=== PATIENT | female | born 1960 | race Caucasian/White ===

== ENCOUNTER 2016-06-22 20:31 | Emergency (ER) | payer MEDICARE, MEDICAID ==
[~2016-06-22] VITALS: Ht 157.5 cm; Wt 90.9 kg
[2016-06-22 21:36] VITALS: BP 145/96
[2016-06-22] MEDS ORDERED: HYDROmorphone 2 MG/ML (DILAUDID) 1 ML SYRINGE IM ONE (21:45)
[2016-06-22] MEDS ORDERED: KETOROLAC 60 MG/2 ML (TORADOL) VIAL IM ONE (21:45)
--- NOTE | 2016-06-22 22:40 | NUR ---
Jacky Rendon RN now assumes care of patient.
== END 2016-06-22 22:54 | disposition home or self-care (01) ==
LOC: ED 20:33
DX: S39.012A Strain of muscle, fascia and tendon of lower back, initial encounter (principal); W01.0XXA Fall on same level from slipping, tripping and stumbling without subsequent striking against object, initial encounter; G89.29 Other chronic pain
CPT/HCPCS: 96372; 99282; J1170; J1885

== ENCOUNTER 2016-07-21 15:03 | Emergency (ER) | payer MEDICARE, MEDICAID ==
[~2016-07-21] VITALS: Ht 157.5 cm; Wt 91.0 kg
--- NOTE | 2016-07-21 15:14 | NUR ---
PT REQUESTS "SOMETHING TO DRINK" & "TAKE THIS BP CUFF OFF, ITS TOO TIGHT". PT INFORMED THE CUFF IS DOWN AT THIS TIME & WILL BE CYCLING BUT IF PT TRIES NOT TO MOVE WHEN IT IS PUMPED UP, IT WILL COME DOWN FASTER. CL
--- NOTE | 2016-07-21 15:30 | NUR ---
WHEN PT ASKED WHO FILLED HER [facility] ON 06/29/16, PT STATES "DR KATHLEEN GENAO" & WHEN ASKED ABOUT HER COMMENT THAT SHE DOESN'T HAVE A PCP, PT STATES "HE WAS MY DR BUT I DROPPED HIM". CL
--- NOTE | 2016-07-21 15:52 | NUR ---
PT CALLS OUT TO ASK HOW MUCH LONGER IT WILL BE. PT INFORMED THIS RN CANNOT GIVE AN AMT OF TIME BUT THAT PTS ARE SEEN IN ORDER OF SEVERITY & THAT THE DR WILL BE IN SOON HE CAN. DR CURTIS NOTIFIED. CL
[2016-07-21] MEDS ORDERED: oxyCODONE/ACETAMINOPHEN 5MG-325 MG (PERCOCET) TABLET PO ONE (16:50)
[2016-07-21] MEDS ORDERED: CYCLOBENZAPRINE 10 MG (FLEXERIL) TAB PO ONE (16:50)
[2016-07-21 17:03] VITALS: BP 135/86
== END 2016-07-21 17:05 | disposition home or self-care (01) ==
LOC: ED 15:05
DX: M54.5 Low back pain (principal); M62.830 Muscle spasm of back
CPT/HCPCS: 99283; A9270

== ENCOUNTER 2016-08-05 13:29 | Emergency (ER) | payer MEDICARE, MEDICAID ==
[~2016-08-05] VITALS: Ht 157.5 cm; Wt 89.7 kg
[~2016-08-05 13:29] MED LIST: BUTORPHANOL INH; CEPH-331 PO; CITA20TA12 PO; CYCL10TA45 PO; DOXY100C2 PO; ESTR1TAB13; ESTR1TAB24 PO; GBPN600T PO; LORA-405 PO; LSNP20T PO; LURA20TA PO; METH500T PO; NFPRILOC40 PO; OXYC-272 PO; OXYC1TAB12 PO; OXYC1TAB87 PO; OXYC20TA3 PO; PIRO20CA PO; PIRO20CA2 PO; PRED20TA PO; RIBA200C13 PO; ROFL500T PO; SOFO400T PO; VORT10TA PO
[2016-08-05] MEDS ORDERED: HYDR-3702 PO (15:13)
[2016-08-05 15:26] VITALS: BP 132/67
--- NOTE | 2016-08-05 16:58 | Diagnostic Imaging Report ---
INDICATION: Third and fourth toe pain. FINDINGS: The submitted views demonstrate no evidence of dislocation of the interphalangeal joints or metatarsophalangeal joints of the second through fifth toes. No acute fracture is evident. IMPRESSION: No acute process evident within the right toes. Dictated by: Dictated on workstation # [id number]
== END 2016-08-05 15:30 | disposition home or self-care (01) ==
LOC: ED 13:32
DX: S90.121A Contusion of right lesser toe(s) without damage to nail, initial encounter (principal); W17.89XA Other fall from one level to another, initial encounter; Y93.89 Activity, other specified; Y92.009 Unspecified place in unspecified non-institutional (private) residence as the place of occurrence of the external cause
CPT/HCPCS: 99283